=== PATIENT | female | born 1965 | race Caucasian/White ===

== ENCOUNTER 2019-08-14 09:41 | Emergency (ER) | payer OTHER ==
[~2019-08-14] VITALS: Ht 182 cm; Wt 145.0 kg
[2019-08-14] MEDS: NITROGLYCERIN 0.4 MG SL TABS BTL 25'S SL PRN ×2 (10:14→11:34)
[2019-08-14] MEDS ORDERED: ASPIRIN 81 MG CHEW (CHILDREN'S ASA) PO ONE (10:15)
--- NOTE | 2019-08-14 10:18 | Diagnostic Imaging Report ---
INDICATION: Chest pain COMPARISON: None available TECHNIQUE: Single frontal radiograph of the chest dated 08/14/2019 FINDINGS: The cardiac silhouette and pulmonary vasculature within normal limits. The lungs are clear. No pleural effusion. No pneumothorax. No acute osseous abnormality. IMPRESSION: No acute cardiopulmonary abnormality. Dictated by: Dictated on workstation # [id number]
--- NOTE | 2019-08-14 11:17 | ED General ---
General Chief Complaint: Chest Pain Stated Complaint: CHEST PAIN Nursing Triage Note: CHEST PAIN IN LEFT UPPER CHEST AREA OFF AND ON FOR SEVERAL DAYS. NO OTHER SYMPTOMS WITH THE PAIN. 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 Nursing Sepsis Screen: No Definite Risk History of Present Illness Date Seen by Provider: Aug 14, 2019 Time Seen by Provider: 11:12 Initial Comments Patient presenting to emergency department for evaluation of chest tightness that radiates to her left jaw and left arm that has been going on since Wednesday. She says it makes her slightly short of breath but she has had no nausea vomiting or diaphoresis. 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 She denies pleuritic pain or pain with eating. She says pain has been pretty well constant since Wednesday. Patient says she has a history of high cholesterol and used to have a diagnosis of hypertension but does not take any medications for high blood pressure. She denies any history of diabetes or smoking history but says that she had a grandfather that had a heart attack in his 50s or 60s. She thinks she had a stress test at least 4-5 years ago but no recent cardiac risk stratification. She is in no obvious distress with normal vital signs other than the hypertension noted. Allergies and Home Medications Allergies Coded Allergies: No Known Drug Allergies (Unverified , 08/14/19) Patient Home Medication List Home Medication List Reviewed: Yes Review of Systems Review of Systems Constitutional: no symptoms reported EENTM: no symptoms reported Respiratory: short of breath Cardiovascular: chest pain Gastrointestinal: no symptoms reported Genitourinary: no symptoms reported Musculoskeletal: no symptoms reported Skin: no symptoms reported Psychiatric/Neurological: No Symptoms Reported All Other Systems Reviewed Negative Unless Noted: Yes Past Rcmcrpf-Pitubv-Jfrvwm Hx Patient Social History Alcohol Use: Denies Use Recreational Drug Use: No Smoking Status: Never a Smoker 2nd Hand Smoke Exposure: No Recent Foreign Travel: No Contact w/Someone Who Travel: No Recent Infectious Disease Expo: No Physical Abuse: No Sexual Abuse: No Mistreated: No Fear: No Past Medical History Hysterectomy Respiratory: No Cardiac: Yes Hypertension 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 oz. kg; 43.00 BMI Method: General Appearance: No Apparent Distress, WD/WN HEENT: PERRL/EOMI Neck: Supple Respiratory: Lungs Clear, No Respiratory Distress Cardiovascular: Regular Rate, Rhythm, No Edema, Normal Peripheral Pulses Gastrointestinal: Non Tender, Soft Back: Normal Inspection Extremity: Normal Capillary Refill Neurologic/Psychiatric: Alert, Oriented x3 Skin: Warm/Dry Progress/Results/Core Measures Suspected Sepsis Recent Fever Within 48 Hours: No Infection Criteria Present: None New/Unexplained Altered Menta: No Sepsis Screen: No Definite Risk SIRS Temperature: Pulse: 83 Respiratory Rate: 18 Laboratory Tests 08/14/19 09:50: White Blood Count 4.7 Blood Pressure 172 /89 Mean: 116 Laboratory Tests 08/14/19 09:50: Creatinine 0.91, Platelet Count 213, Total Bilirubin 0.6 Results/Orders Lab Results Laboratory Tests Test 08/14/19 09:50 08/14/19 13:05 Range/Units White Blood Count 4.7 4.3-11.0 10^3/uL Red Blood Count 4.70 4.35-5.85 10^6/uL Hemoglobin 14.1 11.5-16.0 G/DL Hematocrit 43 35-52 % Mean Corpuscular Volume 92 80-99 FL Mean Corpuscular Hemoglobin 30 25-34 PG Mean Corpuscular Hemoglobin Concent 33 32-36 G/DL Red Cell Distribution Width 13.5 10.0-14.5 % Platelet Count 213 130-400 10^3/uL Mean Platelet Volume 11.8 H 7.4-10.4 FL Neutrophils (%) (Auto) 49 42-75 % Lymphocytes (%) (Auto) 37 12-44 % Monocytes (%) (Auto) 11 0-12 % Eosinophils (%) (Auto) 3 0-10 % Basophils (%) (Auto) 1 0-10 % Neutrophils # (Auto) 2.3 1.8-7.8 X 10^3 Lymphocytes # (Auto) 1.7 1.0-4.0 X 10^3 Monocytes # (Auto) 0.5 0.0-1.0 X 10^3 Eosinophils # (Auto) 0.1 0.0-0.3 10^3/uL Basophils # (Auto) 0.1 0.0-0.1 10^3/uL D-Dimer 0.51 H 0.00-0.49 UG/ML Sodium Level 137 135-145 MMOL/L Potassium Level 4.0 3.6-5.0 MMOL/L Chloride Level 99 98-107 MMOL/L Carbon Dioxide Level 24 21-32 MMOL/L Anion Gap 14 5-14 MMOL/L Blood Urea Nitrogen 18 7-18 MG/DL Creatinine 0.91 0.60-1.30 MG/DL Estimat Glomerular Filtration Rate > 60 BUN/Creatinine Ratio 20 Glucose Level 122 H 70-105 MG/DL Calcium Level 9.8 8.5-10.1 MG/DL Corrected Calcium 8.5-10.1 MG/DL Magnesium Level 2.0 1.6-2.4 MG/DL Total Bilirubin 0.6 0.1-1.0 MG/DL Aspartate Amino Transf (AST/SGOT) 73 H 5-34 U/L Alanine Aminotransferase (ALT/SGPT) 109 H 0-55 U/L Alkaline Phosphatase 115 40-136 U/L Troponin I < 0.30 < 0.30 <0.30 NG/ML Pro-B-Type Natriuretic Peptide 18.2 <75.0 PG/ML Total Protein 8.6 H 6.4-8.2 GM/DL Albumin 4.6 H 3.2-4.5 GM/DL My Orders Orders - LEXIS CARDOZA DO Cbc With Automated Diff (08/14/19 10:01) Comprehensive Metabolic Panel (08/14/19 10:01) Troponin I Fs (08/14/19 10:01) Magnesium (08/14/19 10:01) Fibrin Degradation Products (08/14/19 10:01) Chest 1 View Ap/Pa Only (08/14/19 10:01) Probnp Fs (08/14/19 10:01) Aspirin Chewable Tablet (Baby Aspirin Ch (08/14/19 10:15) Nitroglycerin 0.4 Mg Btl 25's (Nitrostat (08/14/19 10:15) Ct Angio Chest W (08/14/19 11:24) Lisinopril Tablet (Zestril Tablet) (08/14/19 11:30) Lisinopril Tablet (Zestril Tablet) (08/14/19 11:31) Iohexol Injection (Omnipaque 350 Mg/Ml 1 (08/14/19 11:45) Received Contrast (Hold Metformin- Contr (08/14/19 11:45) Sodium Chloride Flush (Catheter Flush Sy (08/14/19 11:45) Ns (Ivpb) (Sodium Chloride 0.9% Ivpb Bag (08/14/19 11:45) Iohexol Injection (Omnipaque 350 Mg/Ml 1 (08/14/19 11:45) Received Contrast (Hold Metformin- Contr (08/14/19 11:45) Troponin I Fs (08/14/19 13:00) Clopidogrel Tablet (Plavix Tablet) (08/14/19 14:00) Medications Given in ED Current Medications Medications Dose Ordered Sig/Daren Route Start Time Stop Time Status Last Admin Dose Admin Aspirin 324 mg ONCE ONCE PO 08/14/19 10:15 08/14/19 10:16 DC 08/14/19 10:14 324 MG Iohexol 100 ml ONCE ONCE IV 08/14/19 11:45 08/14/19 11:46 DC 08/14/19 11:55 100 ML Lisinopril 10 mg ONCE ONCE PO 08/14/19 11:30 08/14/19 11:31 DC 08/14/19 11:35 10 MG Nitroglycerin 0.4 mg NEEDED PRN SL 08/14/19 10:15 08/14/19 11:34 0.4 MG Sodium Chloride 10 ml NEEDED PRN IV 08/14/19 11:45 08/14/19 11:55 10 ML Sodium Chloride 100 ml ONCE ONCE IV 08/14/19 11:45 08/14/19 11:46 DC 08/14/19 11:55 100 ML Vital Signs/I&O 08/14/19 08/14/19 09:55 10:06 Temp 36.2 Pulse 83 Resp 18 B/P (MAP) 172/89 (116) Pulse Ox 97 O2 Delivery Room Air Capillary Refill : Less Than 3 Seconds Blood Pressure Mean: 116 POS Progress Note : Progress Note Patient's with chest pain that is mostly atypical given it is nonexertional and has been constant for the past 4 days for go ahead and check labs imaging treat symptoms and reassess. She does have an abnormal EKG however with inverted T waves in aVL. I do not have any prior for comparison. She was given aspirin and nitroglycerin and she said the nitroglycerin didn't improve the tightness but it is still mildly present. Patient's blood pressure went up again so she was given another dose of nitroglycerin which helped her pressure and tightness however she still continued to have tightness. I spoke to Dr. Logan on 3 different occasions about her presentation and he has me to do a 2 set troponin. Both troponins were negative but she still continued to have chest tightness and elevated blood pressure. He recommended that we admit her to the hospital. I told patient this recommendation given she has a heart score 5 think is continuing to have chest pain that she is at higher risk for acute coronary syndrome and 6 week mortality. Patient verbalized understanding but continued to refuse. She accepted the risks of and disability by not taking my recommendations. Dr. Logan recommended giving her a dose of Plavix here in addition to aspirin and starting her on 81 mg aspirin 75 mg Plavix and 10 mg lisinopril as an outpatient and she will follow with him in clinic tomorrow. He said he would be able to arrange for her to get further cardiac provocative testing. Patient was told to not exert herself and come back to emergency department immediately if she has any new or worsening symptoms. Patient aware and agreeable with the above plan and will be discharged. Of note I did tell patient about the incidental findings of pulmonary nodule and transaminitis and need for primary care follow-up for these. Departure Impression Primary Impression: Chest pain Additional Impressions: Hypertension Transaminitis Pulmonary nodule Abnormal EKG Disposition: 01 HOME, SELF-CARE Condition: Stable Departure-Patient Inst. Patient Instructions: Chest Pain (DC) Scripts Lisinopril (Lisinopril) 10 Mg Tablet 10 MG PO DAILY, #30 TAB Prov: LEXIS CARDOZA DO 08/14/19 Aspirin (Aspir 81) 81 Mg Tablet. 81 MG PO DAILY, #30 TAB Prov: LEXIS CARDOZA DO 08/14/19 Clopidogrel Bisulfate (Plavix) 75 Mg Tablet 75 MG PO DAILY, #30 TAB Prov: LEXIS CARDOZA DO 08/14/19 LEXIS CARDOZA DO Aug 14, 2019 11:17 POS
[2019-08-14 11:18] LABS: BASOPHILS # (AUTO) 0.1 10^3/uL (0.0-0.1); BASOPHILS % (AUTO) 1 % (0-10); EOSINOPHILS # (AUTO) 0.1 10^3/uL (0.0-0.3); EOSINOPHILS % (AUTO) 3 % (0-10); HEMATOCRIT 43 % (35-52); HEMOGLOBIN 14.1 G/DL (11.5-16.0); LYMPHOCYTES # (AUTO) 1.7 X 10^3 (1.0-4.0); LYMPHOCYTES % (AUTO) 37 % (12-44); MEAN CORPUSCULAR HEMOGLOBIN 30 PG (25-34); MEAN CORPUSCULAR HGB CONC 33 G/DL (32-36); MEAN CORPUSCULAR VOLUME 92 FL (80-99); MEAN PLATELET VOLUME 11.8 FL (7.4-10.4); MONOCYTES # (AUTO) 0.5 X 10^3 (0.0-1.0); MONOCYTES % (AUTO) 11 % (0-12); NEUTROPHILS # (AUTO) 2.3 X 10^3 (1.8-7.8); NEUTROPHILS % (AUTO) 49 % (42-75); PLATELET COUNT 213 10^3/uL (130-400); RED CELL DISTRIBUTION WIDTH 13.5 % (10.0-14.5); WHITE BLOOD COUNT 4.7 10^3/uL (4.3-11.0)
[2019-08-14 11:19] LABS: ALANINE AMINOTRANSFERASE 109 U/L (0-55); ALKALINE PHOSPHATASE 115 U/L (40-136); BILIRUBIN,TOTAL 0.6 MG/DL (0.1-1.0); BUN/CREATININE RATIO 20; CALCIUM 9.8 MG/DL (8.5-10.1); CARBON DIOXIDE 24 MMOL/L (21-32); CHLORIDE 99 MMOL/L (98-107); CREATININE SERUM 0.91 MG/DL (0.60-1.30); GFR ESTIMATED > 60; GLUCOSE 122 MG/DL (70-105); SODIUM 137 MMOL/L (135-145)
[2019-08-14 11:20] LABS: ALBUMIN 4.6 GM/DL (3.2-4.5); TOTAL PROTEIN 8.6 GM/DL (6.4-8.2)
[2019-08-14] MEDS ORDERED: lisINopril 10 MG (PRINIVIL) TABLET PO ONE (11:30)
[2019-08-14] MEDS ORDERED: lisINopril 10 MG (PRINIVIL) TABLET ONE (11:31)
[2019-08-14] MEDS ORDERED: IOHEXOL 350 MG/ML 150 ML (OMNIPAQUE 350) VIAL IV ONE (11:45)
[2019-08-14] MEDS ORDERED: HOLD METFORMIN - RECEIVED CONTRAST 20 ML VIAL IV SCH ×2 (11:45)
[2019-08-14] MEDS ORDERED: CATHETER FLUSH 10 ML SYR IV PRN (11:45)
[2019-08-14] MEDS ORDERED: IOHEXOL 350 MG/ML 100 ML (OMNIPAQUE 350) VIAL IV ONE (11:45)
[2019-08-14] MEDS ORDERED: NS 100 ML (IVPB) BAG IV ONE (11:45)
--- NOTE | 2019-08-14 12:29 | Diagnostic Imaging Report ---
PROCEDURE: CT angiography of the chest with contrast. TECHNIQUE: Multiple contiguous axial images were obtained through the chest after uneventful bolus administration of intravenous contrast. 3D reconstructed CTA MIP acquisitions were also performed. Auto Exposure Controls were utilized during the CT exam to meet ALARA standards for radiation dose reduction. INDICATION: Chest pain between the shoulder blades. FINDINGS: The thoracic aorta is normal in caliber. No aneurysm or dissection is identified. The pulmonary arterial system is without evidence of filling defects. No pericardial or pleural fluid is identified. Parenchymal evaluation demonstrates small nodular density in right middle lobe 6-7 mm in size. Remainder of the lung sebastian are clear. Upper abdomen does show generalized low density throughout the liver consistent with hepatic steatosis. IMPRESSION: 1. No evidence of pulmonary embolism or thoracic aortic dissection. 2. Subcentimeter right middle lobe pulmonary nodular density. Follow-up CT chest in six months is recommended to confirm stability. 3. Hepatic steatosis. Dictated by: Dictated on workstation # [id number]
--- NOTE | 2019-08-14 13:39 | NUR ---
Vandana dcdavid in ED - 08/14/19 at 1413 by [id number] Talked to Travis T[facility] supervisor [employer] and stated an off duty crew will take the patient. Guy was informed that the patient will be ready to go at 1400.
[2019-08-14] MEDS ORDERED: LISI10TA2 PO (13:57)
[2019-08-14] MEDS ORDERED: CLOP75TA69 PO (13:57)
[2019-08-14] MEDS ORDERED: ASPI-586 PO (13:57)
[2019-08-14] MEDS ORDERED: CLOPIDOGREL 300 MG (PLAVIX) TABLET PO ONE (14:00)
[2019-08-14 14:08] VITALS: BP 155/63
== END 2019-08-14 14:08 | disposition home or self-care (01) ==
LOC: ER FS 09:43
DX: R07.9 Chest pain, unspecified (principal); I10 Essential (primary) hypertension; R91.1 Solitary pulmonary nodule; R74.0 Nonspecific elevation of levels of transaminase and lactic acid dehydrogenase [LDH]; R94.31 Abnormal electrocardiogram [ECG] [EKG]; K21.9 Gastro-esophageal reflux disease without esophagitis; Z90.710 Acquired absence of both cervix and uterus; Z98.51 Tubal ligation status; Z82.49 Family history of ischemic heart disease and other diseases of the circulatory system
CPT/HCPCS: 36415; 71045; 71275; 80053; 83735; 83880; 84484; 85025; 85379; 93005

== ENCOUNTER → 2019-08-24 | Outpatient (CLI) | payer OTHER ==
[~2019-08-24] VITALS: Ht 182 cm; Wt 147.0 kg
[~2019-08-24] MED LIST: ASPI-586 PO; CATHETER FLUSH 10 ML SYR IV PRN; CLOP75TA69 PO; LISI10TA2 PO; REGADENOSON 0.4 MG/5 ML SYR (LEXISCAN) IV ONE
== END ==
LOC: CARD 07:32
PROVIDERS: ATTEND Internal Medicine Interventional Cardiology
DX: E78.01 Familial hypercholesterolemia (principal); R07.2 Precordial pain; R06.02 Shortness of breath; I10 Essential (primary) hypertension; E66.01 Morbid (severe) obesity due to excess calories
CPT/HCPCS: 78452; 93017

== ENCOUNTER 2019-10-12 06:54 | Day surgery (SDC) | payer OTHER ==
[~2019-10-12] VITALS: Ht 182 cm; Wt 147.0 kg
[2019-10-12] VITALS (10 sets, daily range): BP systolic 127–167; BP diastolic 69–96
[~2019-10-12 06:54] MED LIST changes: -CATHETER FLUSH 10 ML SYR IV PRN; -REGADENOSON 0.4 MG/5 ML SYR (LEXISCAN) IV ONE
[2019-10-12] MEDS ORDERED: LIDOCAINE 1% INJ 20 ML 20 ML VIAL ONE (06:56)
[2019-10-12] MEDS ORDERED: HEParin 1000 UNIT/ML (10ML VIAL) FOR BOLUS ONE (06:56)
[2019-10-12] MEDS ORDERED: NS IV 1000 ML 3,000 ML ONE (06:56)
[2019-10-12] MEDS ORDERED: NS IV 1000 ML 1,000 ML IV SCH ×2 (07:00→09:57)
[2019-10-12] MEDS ORDERED: CLOP75TA28 PO (07:36)
[2019-10-12 07:37] LABS: HEMOGLOBIN 13.6 G/DL (11.5-16.0); MEAN PLATELET VOLUME 12.1 FL (7.4-10.4); RED CELL DISTRIBUTION WIDTH 14.2 % (10.0-14.5); WHITE BLOOD COUNT 3.1 10^3/uL (4.3-11.0)
[2019-10-12] MEDS ORDERED: LISI10TA2 PO ×2 (07:37→07:38)
[2019-10-12] MEDS ORDERED: AMIT50TA3 PO (07:37)
[2019-10-12] MEDS ORDERED: SERT100T8 PO (07:38)
--- NOTE | 2019-10-12 07:39 | NUR ---
Patient brought medication bottles in. Stated how she took them. Plavix 75mg HS 10/03/19 Lisinopril 10mg HS 10/03/19 Amitriptyline 50mg HS 08/16/19 [id number] Sertraline 100mg HS 09/29/19
[2019-10-12 07:51] LABS: INR 0.8 (0.8-1.4); PROTHROMBIN TIME PATIENT 11.7 SEC (12.2-14.7)
[2019-10-12] MEDS ORDERED: fentaNYL INJECTION 100 MCG/2 ML AMP ONE (07:53)
[2019-10-12] MEDS ORDERED: MIDAZOLAM 5 MG/5 ML (VERSED) VIAL ONE (07:53)
[2019-10-12 07:57] LABS: ALANINE AMINOTRANSFERASE 89 U/L (0-55); ALBUMIN 4.1 GM/DL (3.2-4.5); ALKALINE PHOSPHATASE 98 U/L (40-136); BILIRUBIN,TOTAL 0.3 MG/DL (0.1-1.0); BUN/CREATININE RATIO 18; CARBON DIOXIDE 18 MMOL/L (21-32); CHLORIDE 107 MMOL/L (98-107); CREATININE SERUM 0.93 MG/DL (0.60-1.30); GFR ESTIMATED > 60; GLUCOSE 109 MG/DL (70-105); POTASSIUM 4.2 MMOL/L (3.6-5.0); SODIUM 139 MMOL/L (135-145); TOTAL PROTEIN 7.7 GM/DL (6.4-8.2)
[2019-10-12] MEDS ORDERED: VERAPAMIL 5 MG/2 ML (CALAN) VIAL IV ONE (08:43)
[2019-10-12] MEDS ORDERED: NITRO DRIP 25000 MCG/D5W 250 ML IV ONE (08:44)
--- NOTE | 2019-10-12 09:51 | History & Physicial-Cardiolgy ---
HPI-Cardiology Cardiology Consultation: Date of Consultation 10/12/19 Date of Admission Attending Physician Sheila Logan MD Admitting Physician Salvador Forrester MD Consulting Physician Sheila LOGAN MD HPI: Time Seen by a Provider: 08:45 Chief Complaint: Chest pressure This is a 53-year-old lady who has history of hypertension and hyperlipidemia. She presented to the ER with a prolonged episode of chest pressure previously. She denied active smoking or premature family history of CAD. Nuclear stress test showed possible evidence of anterior ischemia. Coronary angiography is r ecommended. Review of Systems-Cardiology Review of Systems Constitutional: As described under HPI; No As described under HPI, No no symptoms reported, No chills, No fever, No lightheadedness Eyes: No As described under HPI, No no symptoms reported, No blindness, No blurred vision, No contact lenses, No drainage, No decreased acuity, No foreign body sensation, No pain, No vision change Ears/Nose/Throat: No As described under HPI, No no symptoms reported, No chronic hearing loss, No ear discharge, No ear pain, No nasal drainage, No ulcerations Respiratory: No no symptoms reported; As described under HPI; No As described under HPI, No cough, No orthopnea, No shortness of breath, No SOB with excertion Cardiovascular: No no symptoms reported; As described under HPI; No As described under HPI; chest pain; No edema, No irregular heart rate, No lightheadedness, No palpitations Gastrointestinal: No no symptoms reported, No As described under HPI, No abdomen distended, No abdominal pain, No blood streaked bowels, No constipation, No diarrhea, No nausea, No vomiting, No stool coloration changes Genitourinary: No As described under HPI, No burning, No dysuria, No discharge, No frequency, No flank pain, No hematuria, No urgency : Yes : No Skin: No rash, No skin related problems, No ulcerations Psychiatric/Neurological: No anxiety, No depression, No seizure, No focal weakness, No syncope Hematologic: No bleeding abnormalities [id number] Hx Patient Social History Alcohol Use: Denies Use Recreational Drug Use: No Smoking Status: Never a Smoker 2nd Hand Smoke Exposure: No Recent Foreign Travel: No Immunizations Up To Date Tetanus Booster (TDap): More than 5yrs Past Medical History PMH As described under Assessment. Allergies and Home Medications Allergies Coded Allergies: ampicillin (Verified Allergy, Unknown, 08/14/19) azithromycin (Verified Allergy, Unknown, 08/14/19) eletriptan (Verified Allergy, Unknown, 08/14/19) levofloxacin (Verified Allergy, Unknown, 08/14/19) penicillin G (Verified Allergy, Unknown, 08/14/19) promethazine (Verified Allergy, Unknown, 08/14/19) sumatriptan (Verified Allergy, Unknown, 08/14/19) tetracycline (Verified Allergy, Unknown, 08/14/19) Home Medications Amitriptyline HCl 50 Mg Tablet, 50 MG PO HS, (Reported) Clopidogrel Bisulfate 75 Mg Tablet, 75 MG PO HS, (Reported) Lisinopril 10 Mg Tablet, 10 MG PO HS, (Reported) Sertraline HCl 100 Mg Tablet, 100 MG PO HS, (Reported) Patient Home Medication List Home Medication List Reviewed: Yes Physical Exam-Cardiology Physical Exam Vital Signs/I&O 10/12/19 07:15 Temp 37.2 Pulse 115 Resp 16 B/P (MAP) 167/96 (119) Pulse Ox 95 O2 Delivery Room Air Capillary Refill : Constitutional: appears stated age, AAO x 3; No apparent distress; well- developed, well-nourished HEENT: PERRL; No discharge; hearing is well preserved, oral hygience is good; No ulceration, No xanthelasmas are seen Neck: No carotid bruit; carotid pulses are 2 + bilaterally Respiratory: chest is bilaterally symmetric, lungs clear to auscultation Cardiovascular: regular rate-rhythm, S1 and S2 Gastrointestinal: soft, audible bowel sounds; No spleenomegaly Rectal: deferred Extremities: No clubbing, No cyanosis; no lower extremity edema bilateral; No significant edema Neurologic/Psychiatric: no motor/sensory deficits, alert, normal mood/affect, oriented x 3, power is 5/5 both on sides Skin: normal color; No rash, No ulcerations Data Review Labs Laboratory Tests 10/12/19 07:30: White Blood Count 3.1L, Red Blood Count 4.48, Hemoglobin 13.6, Hematocrit 41, Mean Corpuscular Volume 90, Mean Corpuscular Hemoglobin 30, Mean Corpuscular Hemoglobin Concent 34, Red Cell Distribution Width 14.2, Platelet Count 112L, Mean Platelet Volume 12.1H, Prothrombin Time 11.7L, INR Comment 0.8, Activated Partial Thromboplast Time 20L, Sodium Level 139, Potassium Level 4.2, Chloride Level 107, Carbon Dioxide Level 18L, Anion Gap 14, Blood Urea Nitrogen 17, Creatinine 0.93, Estimat Glomerular Filtration Rate > 60, BUN/Creatinine Ratio 18, Glucose Level 109H, Calcium Level 9.0, Corrected Calcium 8.9, Total Bilirubin 0.3, Aspartate Amino Transf (AST/SGOT) 60H, Alanine Aminotransferase (ALT/SGPT) 89H, Alkaline Phosphatase 98, Total Protein 7.7, Albumin 4.1 A/P-Cardiology Assessment/Admission Diagnosis Chest pain, abnormal nuclear stress test. Admission Status: Observation Plan Coronary angiography today. Continue lisinopril for hypertension. Continue statin therapy for hyperlipidemia. Sheila LOGAN MD Oct 12, 2019 09:51
--- NOTE | 2019-10-12 09:52 | Cardiac Procedure Note-CS/ASA ---
Pre-Procedure Note Pre-Op Procedure Note H&P Reviewed The H&P was reviewed, patient examined and no changes noted. Date H&P Reviewed: Oct 12, 2019 Time H&P Reviewed: 08:45 Conscious Sedation Pre-Proced Time 08:45 ASA Score 3 For ASA 3 and 4: Consider anesthesia and medical clearance. Also, for patients with a history of failed moderate sedation consider anesthesia. Airway Lungs Heart ASA score ASA 1: a normal healthy patient ASA 2: a patient with a mild systemic disease (mid diabetes, controlled hypertension, obesity ASA 3: a patient with a severe systemic disease that limits activity (angina, COPD, prior Myocardial infarction) ASA 4: a patient with an incapacitating disease that is a constant threat to life (CHF, renal failure) ASA 5: a moribund patient not expected to survive 24 hrs. (ruptured aneurysm) ASA 6: a declared brain- patient whose organs are being harvested. For emergent operations, add the letter E after the classification Mallampati Classification Grade 1 Sedation Plan Analgesia, Amnesia, Plan communicated to team members, Discussed options with patient/fam, Discussed risks with patient/fam The patient is an appropriate candidate to undergo the planned procedure, sedation, and anesthesia. The patient immediately re-assessed prior to indication. Sheila GILMORE MD Oct 12, 2019 09:52
--- NOTE | 2019-10-12 09:57 | Coronary Angiography Report ---
Coronary Angiography Report DATE OF PROCEDURE: 10/12/19 INDICATION: Chest pain, abnormal nuclear stress test. PREOPERATIVE DIAGNOSIS: Chest pain, abnormal nuclear stress test. POSTOPERATIVE DIAGNOSIS: Patent epicardial coronary arteries. HISTORY: This is a 53-year-old lady with history of hypertension and hyperlipidemia. She presented to an ER with prolonged episode of chest pain. Nuclear stress test showed possible anterior ischemia. Therefore, the patient was scheduled for coronary angiography. PROCEDURES PERFORMED: 1.Coronary angiography. 2.Left heart catheterization. COMPLICATIONS: None. SPECIMENS: None. ESTIMATED BLOOD LOSS: 10 mL ANESTHESIA: Conscious sedation ANTICOAGULATION: IV heparin CONTRAST: 70 mL. FLUOROSCOPY: 4.3 minutes. FLOUROSCOPY DOSE: 627 mgy. PROCEDURE DETAILS: The patient is a 53 female and was brought to the greens laborer after informed consent was taken. All the risks and complications were explained in detail; this included the risk of bleeding, vascular damage, stroke, NE and even . The patient was draped and prepped in the usual sterile fashion. Access was gained in the right radial artery with a 6 Telugu sheath. Coronary angiography and left heart catheterization was performed with the [place] catheter. FINDINGS: 1.Left main: Patent. 2.LAD: Patent. 3.Left circumflex artery: Patent. 4.RCA: Catheter-induced spasm noted. Responded with complete resolution to nitroglycerin 100 g IC times one. No coronary disease. 5.Left heart catheterization: LV pressure 103/2 mmHg. LVEDP 7 mmHg. Aortic pressure 100/68 mmHg. Normal LV function with no wall motion abnormalities. No gradient across the aortic valve. CONCLUSIONS: Patent epicardial coronary arteries. Spasm noted in the RCA which resolved completely with nitroglycerin. Continue primary prevention of CAD. Ric Logan MD, FACP, FACC, [facility] Interventional Cardiology Sheila LOGAN MD Oct 12, 2019 09:57
[2019-10-12] MEDS ORDERED: PATIENT MAY USE OWN MEDS, ALL PO SCH (10:00)
--- NOTE | 2019-10-12 10:03 | Discharge Inst-Post CATH ---
Discharge Inst-CATH/EP Problems Reviewed?: Yes Final Diagnosis Patent epicardial coronary arteries. Post Cardiac Cath/EP D/C Inst Follow Up/Plan Keep the scheduled follow-up appointment in 2-3 weeks. <b>CARDIAC CATH/EP PROCEDURE DISCHARGE INSTRUCTIONS</b> ACTIVITY * Go Home directly and rest. * Limit activity of the leg (or wrist if it was used) for 7 days including aerobics, swimming, jogging, bicycling, etc. * Restrict stair-climbing for 7 days if possible, if not, climb up with your non-cath leg, then bring together on the same step. * Avoid lifting, pushing, pulling or excessive movement of the affected extremity for 7 days. * Customary sexual activity may be resumed after 2 days-use caution not to use a position that strains or causes pain to the affected extremity. * No driving for 24 hours. * NO SMOKING. * Avoid straining for bowel movements for 7 days. * Gentle walking on level ground is allowed. * Returning to work will depend on the type of procedure and the results. Your doctor will discuss this with you. CALL YOUR DOCTOR FOR ANY OF THE FOLLOWING: *If bleeding from the puncture site occurs- Apply gentle pressure to site with clean cloth and call your doctor or EMS. * If a knot or lump forms under the skin, increases in size, or causes pain. * If bruising appears to be worsening or moving further down your leg instead of disappearing. * Temperature above 101 F. CARE OF YOUR GROIN INCISION; * Bruising or purple discoloration of the skin near the puncture site is common. * You may shower only, no bathtub bathing for 5 days. Be careful to avoid slipping as your leg may feel stiff. * If a closure device was used on your femoral artery, please see the attached guide regarding care of the device and your leg. * Leave dressing on FOR 24 hours. CARE OF YOUR WRIST INCISION; * Bruising or purple discoloration of the skin near the puncture site is common. * You may shower. * DO NOT submerge wrist. * Leave dressing on FOR 24 hours. Sheila GILMORE MD Oct 12, 2019 10:03
--- NOTE | 2019-10-12 10:05 | Cardiology Discharge Summary ---
Diagnosis/Chief Complaint Date of Admission 10/12/2019 Date of Discharge 10/12/2019 Admission Diagnosis Chest pain, abnormal nuclear stress test. Final/Discharge Diagnosis Patent epicardial coronary arteries. Chief Complaint/HPI Chief Complaint/HPI This is a 53-year-old lady who has history of hypertension and hyperlipidemia. She presented to the ER with a prolonged episode of chest pressure previously. She denied active smoking or premature family history of CAD. Nuclear stress test showed possible evidence of anterior ischemia. Coronary angiography is recommended. Discharge Summary Procedures Coronary angiography revealed patent epicardial coronary arteries. Discharge Physical Examination Normal. Hospital Course Was the Problem List Reviewed?: Yes Unremarkable. Pending Labs Laboratory Tests 10/12/19 07:30: White Blood Count 3.1, Red Blood Count 4.48, Hemoglobin 13.6, Hematocrit 41, Mean Corpuscular Volume 90, Mean Corpuscular Hemoglobin 30, Mean Corpuscular Hemoglobin Concent 34, Red Cell Distribution Width 14.2, Platelet Count 112, Mean Platelet Volume 12.1, Prothrombin Time 11.7, INR Comment 0.8, Activated Partial Thromboplast Time 20, Sodium Level 139, Potassium Level 4.2, Chloride Level 107, Carbon Dioxide Level 18, Anion Gap 14, Blood Urea Nitrogen 17, Creatinine 0.93, Estimat Glomerular Filtration Rate > 60, BUN/Creatinine Ratio 18, Glucose Level 109, Calcium Level 9.0, Corrected Calcium 8.9, Total Bilirubin 0.3, Aspartate Amino Transf (AST/SGOT) 60, Alanine Aminotransferase (ALT/SGPT) 89, Alkaline Phosphatase 98, Total Protein 7.7, Albumin 4.1 Discussion & Recommendations Discussion Discussed with the patient and family. If she continues to have chest pressure, it could be due to spasm and we will change her antihypertensive to amlodipine or Cardizem. DC Plavix. Follow up appt.: Keep follow-up appointment already scheduled. Dicharge Diet: Cardiac Diet Activity as Tolerated: Yes Home Medications Reviewed patient Home Medication Reconciliation performed by pharmacy medication reconciliations carpet cleaning technician and/or nursing. Patients Allergies have been reviewed. Discharge Home Medications: Reviewed and agree with Discharge Medication list on patient's Discharge Instruction sheet Condition at discharge Stable. Instructions to patient/family Keep the scheduled follow-up appointment in 2-3 weeks. Sheila GILMORE MD Oct 12, 2019 10:05
== END 2019-10-12 13:05 | disposition home or self-care (01) ==
LOC: CATH 06:54 → SDC 10:05 → CATH 13:05
PROVIDERS: ATTEND Internal Medicine Interventional Cardiology
DX: R07.9 Chest pain, unspecified (principal); R94.39 Abnormal result of other cardiovascular function study; I10 Essential (primary) hypertension; E78.5 Hyperlipidemia, unspecified; Z88.0 Allergy status to penicillin; Z88.1 Allergy status to other antibiotic agents; Z79.899 Other long term (current) drug therapy
CPT/HCPCS: 36415; 80053; 85027; 85610; 85730; 87081; 93458